=== PATIENT | male | born 1965 | race African-American/Black ===

== ENCOUNTER 2024-09-06 11:29 | Emergency (ER) | payer MEDICARE, MEDICAID, SELFPAY ==
--- NOTE | ~2024-09-06 | CT_ITS ---
EXAMINATION: CT ABDOMEN AND PELVIS WITHOUT CONTRAST CLINICAL INFORMATION: Lower abdominal pain. COMPARISON: None available. TECHNIQUE: Multidetector volumetric imaging was performed from the superior aspect of the liver through the pubic symphysis. Sagittal and coronal reformatted images were obtained on the technologist's workstation. This CT examination was performed using dose optimization techniques as appropriate, variously including the following: *Automated exposure control *Adjustment of mA and/or kV according to patient size (this includes techniques or standardized protocols for targeted exams where dose is matched to indication/reason for exam; i.e. extremities or head) *Use of iterative reconstruction technique DLP: 416 mGy-cm FINDINGS: LUNG BASES: The visualized lung bases are unremarkable. LIVER, GALLBLADDER, AND BILIARY TREE: The liver is normal in size, shape, and attenuation. No focal hepatic lesion or biliary ductal dilatation is present. The gallbladder is unremarkable with no evidence of radiopaque gallstones, gallbladder wall thickening, or obvious pericholecystic inflammatory changes. PANCREAS: Unremarkable. SPLEEN: Unremarkable. ADRENAL GLANDS: Unremarkable. KIDNEYS AND URETERS: The kidneys are normal in size, shape, and attenuation. No hydronephrosis, hydroureter, or calculi seen. No perinephric stranding. BLADDER: Unremarkable. GASTROINTESTINAL TRACT: There are numerous diverticula of the sigmoid colon. There is no diverticulitis. There is no bowel wall thickening /edema. There is no bowel obstruction. There is a moderate volume of stool in the colon. The appendix is nonvisualized . The small bowel loops are unremarkable. The stomach is normal. There is no hiatal hernia. ABDOMINAL WALL: Small bilateral fat-containing inguinal hernia. LYMPH NODES: Normal. VASCULAR: Fusiform aneurysm of the distal aorta. Measures 3.3 cm transverse at the bifurcation. Based on published guidelines in J Am Ngoc Radiol 2013; 10(10):789-794 and J Vasc Surg. 2018; 67:2-77, the recommendation for an abdominal aortic aneurysm with diameter 3.0-3.4 cm is follow-up every 3 years. PELVIC VISCERA: Coarse calcifications within the prostate. Prostate measures 3.4 cm transverse. OSSEOUS STRUCTURES: Unremarkable. CT/CT abdomen pelvis wo IV con IMPRESSION: 1. No acute abnormality CT scan abdomen pelvis. 2. Diverticulosis of colon. No acute change of the bowel. 3. Fusiform aneurysm of the distal aorta. Follow-up every 3 years recommended. Fleischner guidelines were followed. Electronically signed by: Cm Connors MD 09/06/2024 06:34 PM [facility] GONZALEZ
[2024-09-06 11:48] VITALS: BP 226/82; PULSE 62; RESP 16; TEMP 36.8; O2SAT 98; BMI 22.3
--- NOTE | 2024-09-06 11:49 | ED.GENADULT ---
HPI - General Adult General Chief complaint: Abdominal Pain Stated complaint: Hernia Lightheaded Dizzy Related Data Allergies Allergy/AdvReac Type Severity Reaction Status Date / Time aspirin [ASA] Allergy Unknown ANAPHYLAXIS Verified 09/06/24 11:52 strawberry [STRAWBERRY] Allergy Unknown HIVES Verified 09/06/24 11:52 Physical Exam ED Vital Signs: Vital Signs - 24 hr 09/06/24 11:48 Temperature 98.3 F Pulse Rate 62 Respiratory Rate 16 Blood Pressure 226/82 H Pulse Oximetry 98 Oxygen Delivery Method Room Air BMI result Body Mass Index 22.3 Course Course Course Narrative: RME, this is a rapid medical exam performed by Hugo Monroy please refer to primary provider for complete H&P- 59 year old male with history of COPD, HTN, presents for evaluation of right lower abdominal pain for the last 30 days. He went to urgent care this morning and was diagnosed with an inguinal hernia. He was sent here for further evaluation. The patient has not previously been diagnosed with a hernia. His pain is 10/10, denies any other complaints or concerns. The patient is quite hypertensive in triage to 226/82. He does not have any chest pain. Plan for labs, will defer any potential imaging to primary ER provider Discharge Plan Discharge Print Language: Czech
[2024-09-06 12:03] LABS: MANUAL DIFF FLAG NO
[2024-09-06 12:05] LABS: Basophils Absolute Auto 0.1 X10*3/uL (0.0-0.2); Basophils Percent Auto 0.7 % (0-2); Eosinophils Absolute Auto 0.1 X10*3/uL (0.0-0.4); Eosinophils Percent Auto 0.8 % (0-4); Hematocrit 41.1 % (42.0-52.0); Hemoglobin 13.6 g/dl (14.0-18.0); Imm Gran Abs Auto 0.06 X10*3/uL (0.00-0.03); Imm Gran Pct Auto 0.4 % (0.0-0.4); Lymphocytes Absolute Auto 3.7 X10*3/uL (1.2-4.9); Lymphocytes Percent Auto 27.5 % (20-40); Mean Corpuscular HGB Conc 33.1 g/dl (31.0-36.0); Mean Corpuscular Hemoglobin 29.1 pg (27.0-33.0); Mean Platelet Volume 9.9 fL (9.4-12.4); Monocytes Absolute Auto 0.9 X10*3/uL (0.1-1.2); Monocytes Percent Auto 6.9 % (2-11); Neutrophils Absolute Auto 8.5 x10*3/uL (2.0-8.3); Neutrophils Percent Auto 63.7 % (45-73); Platelet Count 285 X10*3/uL (160-400); Red Blood Count 4.67 X10*6/uL (4.60-5.80); Red Cell Distribution Width 15.9 % (11.0-16.0); White Blood Count 13.4 X10*3/uL (4.8-10.8)
[2024-09-06 12:07] LABS: Appearance Urine Clear; Color Urine Yellow; Glucose Urine UA Negative (Negative); Leukocyte Esterase Urine Negative (Negative); Nitrite Urine Negative (Negative); Specific Gravity - Urine <= 1.005 (1.005-1.025); Urine Blood Negative (Negative); Urine Ketones Negative (Negative); Urine Protein Negative (Neg-Trace)
[2024-09-06 12:09] LABS: Bacteria Urine None Seen (None Seen); Hyaline Casts Urine 0-2 /LPF (0-2); RBC Urine 0-2 /HPF (0-2); Squamous Epithelial Cell Urine 0-2 /HPF (0-2); WBC Urine 0-5 /HPF (0-5)
[2024-09-06 12:10] LABS: INTERNATIONAL NORM RATIO 1.1 (0.9-1.1); Prothrombin Time 12.4 SEC (10.9-12.4)
[2024-09-06 12:18] LABS: Lactic Acid 1.3 mmol/L (0.5-2.0)
[2024-09-06 12:19] LABS: Alanine Aminotransferase 22 U/L (0-40); Albumin Level 4.4 g/dL (3.5-5.0); Alkaline Phosphatase 124 U/L (39-117); Anion Gap 9 (12-20); Aspartate Amino Transferase 24 U/L (5-37); Bilirubin Total 0.6 mg/dL (0.0-1.0); Blood Urea Nitrogen 9 mg/dL (9-16); Calcium 8.5 mg/dL (8.4-10.2); Carbon Dioxide 27 mmol/L (22-29); Chloride 106 mmol/L (96-108); Creatinine Clr Calc Pharmacy 102.7; Estimated Glomerular Filt Rate > 60; Glucose Random 106 mg/dL (60-115); Lipase 37 U/L (8-78); Potassium 3.5 mmol/L (3.3-5.1); Sodium 138 mmol/L (135-145); Total Protein 8.5 g/dL (6.5-8.0)
[2024-09-06 13:42] VITALS: BP 187/78; PULSE 59; RESP 18; O2SAT 98
--- NOTE | 2024-09-06 14:16 | ED_ITS ---
HPI - Abdominal Pain General Chief Complaint: Abdominal Pain Stated Complaint: Hernia Lightheaded Dizzy Time Seen by Provider: 09/06/24 14:09 Source: patient Mode of arrival: ambulatory Limitations: no limitations History of Present Illness HPI narrative: This is 59 years old male referred to us from the urgent care because of abdominal pain pain is localized to his in the right lower quadrant a left,Urgent care was concerned abou strangulation elicited complaint: abdominal pain Pertinent past history: none Onset (ago): month(s) Pain Consistency: constant Location: other (bilateral inguinal) Quality: cramping Radiation: RUQ and LLQ Migration to: no migration Exacerbating factors: nothing Relieving factors: nothing Related Data Allergies Allergy/AdvReac Type Severity Reaction Status Date / Time aspirin [ASA] Allergy Unknown ANAPHYLAXIS Verified 09/06/24 11:52 strawberry [STRAWBERRY] Allergy Unknown HIVES Verified 09/06/24 11:52 Review of Systems Eyes: Reports no additional eye complaints Reports system reviewed and no additional complaints, except as documented Cardiovascular: Reports no additional cardiovascular complaints Respiratory: Reports as per HPI PMFSH Past Medical History [facility] Narrative: Patient denies any major medical problems Social History Social History Advance Directives: No Advance Directives Information Provided: Yes Physical Exam ED Vital Signs: Vital Signs - 24 hr 09/06/24 11:48 09/06/24 13:42 09/06/24 15:27 Temperature 98.3 F 98.5 F Pulse Rate 62 59 67 Respiratory Rate 16 18 18 Blood Pressure 226/82 H 187/78 H 187/79 H Pulse Oximetry 98 98 100 Oxygen Delivery Method Room Air Room Air Room Air BMI result Body Mass Index 22.3 Const General: cooperative Nutritional Appearance: well nourished Orientation/consciousness: patient oriented x3 Limitations: no limitations HENMT Head: Yes normal to inspection General nose exam: Normal external nose present Face and sinus: Yes normal facial exam Mouth: Normal oral and palatal mucosa present Throat: Yes posterior oropharynx normal Neck Neck: Yes normal visual inspection Chest Chest palpation & inspection: normal inspection of the chest Resp Effort & Inspection: normal respiratory effort Cardio Jugular venous distension: no JVD Rate: regular rate GI Other: Bilateral tenderness in the right and left lower quadrant Inspection: Yes normal to inspection Palpation (GI): Soft to palpation, not firm and nontender Skin General skin exam: no rashes or lesions noted, elasticity normal and turgor normal Lesions: no lesions Rashes: no rashes Trauma: no lacerations or abrasions Wounds: no wounds Neuro General: patient oriented x3 Course Reevaluation(s) Reevaluation #1: Patient leaves against medical advice he understands risk including sudden , I am not ready to discharge him yet his CT scan result is pending AMA Before ct resulted Time: 15:14 Medical Decision Making Medical Decision Making [facility] Narrative: Patient presented with a bilateral lower abdominal pain concern for hernia we will obtain labs imaging Differential Diagnosis Differential Diagnoses: The differential diagnosis associated with the presentation includes Bilateral inguinal hernia/appendicitis/diverticulitis Admission/Observation Consideration of admission/observation: Escalation of care including admission/observation considered Lab Data [facility] Lab Attestation statement: I reviewed the patient's lab results. 09/06/24 11:58 1218 11:58 Labs: Lab Results 09/06/24 Range/Units 11:58 WBC 13.4 H (4.8-10.8) X10*3/uL RBC 4.67 (4.60-5.80) X10*6/uL Hgb 13.6 L (14.0-18.0) g/dl Hct 41.1 L (42.0-52.0) % MCV 88.0 (80.0-98.0) fL MCH 29.1 (27.0-33.0) pg MCHC 33.1 (31.0-36.0) g/dl RDW 15.9 (11.0-16.0) % Plt Count 285 (160-400) X10*3/uL MPV 9.9 (9.4-12.4) fL Immature Gran % (Auto) 0.4 (0.0-0.4) % Neut % (Auto) 63.7 (45-73) % Lymph % (Auto) 27.5 (20-40) % [place] % (Auto) 6.9 (2-11) % Eos % (Auto) 0.8 (0-4) % Baso % (Auto) 0.7 (0-2) % Lymph # (Auto) 3.7 (1.2-4.9) X10*3/uL [place] # (Auto) 0.9 (0.1-1.2) X10*3/uL Eos # (Auto) 0.1 (0.0-0.4) X10*3/uL Baso # (Auto) 0.1 (0.0-0.2) X10*3/uL Abs Immat Gran (auto) 0.06 H (0.00-0.03) X10*3/uL Absolute Neuts (auto) 8.5 H (2.0-8.3) x10*3/uL Absolute Nucleated RBC 0.000 (0.0-0.012) X10*3/uL Nucleated RBC % (auto) 0.0 (0.0-0.2) /100WBC PT 12.4 (10.9-12.4) SEC INR 1.1 (0.9-1.1) Sodium 138 (135-145) mmol/L Potassium 3.5 (3.3-5.1) mmol/L Chloride 106 (96-108) mmol/L Carbon Dioxide 27 (22-29) mmol/L Anion Gap 9 L (12-20) BUN 9 (9-16) mg/dL Creatinine 0.74 (0.5-1.4) mg/dL Estim Creat Clear Calc 102.7 Estimated GFR > 60 Random Glucose 106 (60-115) mg/dL Lactic Acid 1.3 (0.5-2.0) mmol/L Calcium 8.5 (8.4-10.2) mg/dL Total Bilirubin 0.6 (0.0-1.0) mg/dL AST 24 (5-37) U/L ALT 22 (0-40) U/L Alkaline Phosphatase 124 H (39-117) U/L Total Protein 8.5 H (6.5-8.0) g/dL Albumin 4.4 (3.5-5.0) g/dL Lipase 37 (8-78) U/L Urine Color Yellow Urine Appearance Clear Urine pH 6.0 (5.0-9.0) Ur Specific [place] <= 1.005 (1.005-1.025) Urine Protein Negative (Neg-Trace) mg/dL Urine Glucose (UA) Negative (Negative) mg/dL Urine Ketones Negative (Negative) mg/dL Urine Blood Negative (Negative) Urine Nitrite Negative (Negative) Ur Leukocyte Esterase Negative (Negative) Urine RBC 0-2 (0-2) /HPF Urine WBC 0-5 (0-5) /HPF Ur Squamous Epith Cells 0-2 (0-2) /HPF Urine Bacteria None Seen (None Seen) Hyaline Casts 0-2 (0-2) /LPF Independent Historian Clinical information obtained from an independent historian. History obtained from or confirmed by: Spouse significative other Medications Administered Discontinued Medications Generic Name Dose Route Start Last Admin Trade Name Josias PRN Reason Stop Dose Admin Oxycodone HCl 5 mg 09/06/24 14:40 09/06/24 14:51 Oxycodone Hcl Immed Release 5 Mg Tablet PO 09/06/24 14:41 5 mg ONCE ONE Administration Discharge Plan Discharge Clinical Impression: Abdominal pain Qualifiers: Abdominal location: lower abdomen, unspecified Qualified Code(s): R10.30 - Lower abdominal pain, unspecified Patient Disposition: Left Against Medical Advice Instructions: Abdominal Pain (ED) Additional Instructions: You are leaving against medical advice, you understand risk, your CAT scan is not resulted yet, even a few leaving against medical advise you welcome to come back any time, we will give you the number of the surgeon Dr. Good for follow-up Referrals: Figueroa Good MD [Physician] - 2 days Stand Alone Forms: Against Medical Advice Interventions: ED Discharge Assessment Last Done: 09/06/24 15:27 Discharge Date/Time: 09/06/24 15:28 Print Language: Albanian
[2024-09-06] MEDS: oxyCODONE HCl Immed Release 5 MG TABLET PO (14:51)
[2024-09-06 15:27] VITALS: BP 187/79; PULSE 67; RESP 18; TEMP 36.9; O2SAT 100
== END 2024-09-06 15:28 | disposition left against medical advice (07) ==
PROVIDERS: Physician Assistant; Emergency Provider Emergency Medicine; PCP Internal Medicine
DX: R10.2 Pelvic and perineal pain (principal); R42 Dizziness and giddiness; R10.30 Lower abdominal pain, unspecified; R10.32 Left lower quadrant pain; Z79.899 Other long term (current) drug therapy
CPT/HCPCS: 36415; 74176; 80053; 81001; 83605; 83690; 85025; 85610; 99284

== ENCOUNTER 2024-09-28 08:36 | Outpatient (AMB) | payer MEDICAID, SELFPAY ==
--- NOTE | 2024-09-28 08:37 | A.OFFVIS_ITS ---
Vital Signs 09/28/24 08:44 Height 5 ft 9 in Weight 164 lb 2 oz BMI 24.2 Intake Visit Reasons: 09/06/24 visit, ? Hernia Intake Note: This patient presents for [facility] emergency department follow-up for question of a hernia. Pt c/o; reports pain, right groin. 09/06/2024: Abd/pelvis CT Crop Setting Out Machine Operator Required: No Accompanied by: Family/Other Allergies aspirin [ASA] Allergy (Unknown, Verified 09/28/24 08:45) ANAPHYLAXIS strawberry [STRAWBERRY] Allergy (Unknown, Verified 09/28/24 08:45) HIVES Medication List - Last Reconciled 09/28/24 by Figueroa Good MD albuterol sulfate 90 mcg/actuation 2 puffs inhalation Q4H PRN buspirone 10 mg PO DAILY cyclobenzaprine 5 mg PO TID PRN ibuprofen 600 mg PO Q6H PRN lisinopril 30 mg PO DAILY pantoprazole 40 mg PO DAILY umeclidinium-vilanterol 62.5-25 mcg/actuation (Anoro Ellipta) 1 ea inhalation DAILY HPI HPI 09/06/24 visit, ? Hernia: Details: 59-year-old male referred for fat containing inguinal hernia. He went to the ER last September 06, 2024 for what he describes his pain on the right groin area. He was not aware at that time that he had a right inguinal hernia. He does that he would notice some swelling on the area periodically. His CAT scan showed bilateral inguinal hernias, right more than the left. He says that he does not have any pain or tenderness on the left groin He denies GI complaints He says he has COPD and anxiety. [facility] Medical History (Updated 09/28/24 @ 09:07 by Figueroa Good MD) Reducible right inguinal hernia Hypertension Anxiety COPD (chronic obstructive pulmonary disease) Surgical History No pertinent past surgical history Family History Other Family history unknown Social History Alcohol intake: unknown Patient Tobacco Use Status: Tobacco use Unknown Review of Systems Const Denies chills and Denies fever(s) Card Denies chest pain, Denies dyspnea and Denies dyspnea on exertion Resp Reports cough (Chronic), Denies dyspnea and Denies dyspnea on exertion GI Denies hematochezia and Denies change in bowel habits Denies hematuria and Denies difficulty urinating Musc Denies back pain and Denies limited range of motion Neuro Denies focal weakness and Denies convulsions Psych Reports anxiety, Denies depression and Denies mood swings Physical Exam Vital Signs: BMI result Body Mass Index 24.2 Const General: comfortable and no acute distress Orientation/consciousness: patient oriented x3 Neck Neck: Yes no lymphadenopathy Resp Auscultation: clear to auscultation bilaterally Cardio Rhythm: regular rhythm GI Other: Right groin hernia, palpable with Valsalva, unable to feel an obvious hernia in the left groin Palpation (GI): Soft to palpation, nontender and no guarding Neuro General: patient oriented x3 Assessment & Plan Assessment & Plan (1) Reducible right inguinal hernia: Code(s): K40.90 - Unilateral inguinal hernia, without obstruction or gangrene, not specified as recurrent Category: Medical Plan: He has a fat containing right inguinal hernia which seems to be reducible at this time. I have reviewed his CAT scan. He also has a smaller hernia on the left groin. I explained the technique of inguinal hernia repair with mesh. I reviewed the risks including but not limited to bleeding, infections, injury to other organs including bowel, vas deferens, as testicle, recurrence, postop pain, as well as the benefits and alternatives. I explained to him what to expect postoperatively including restrictions He says he wants to proceed with repair of the right inguinal hernia. He says that he does not want repair of left inguinal hernia at this time. His was with him during the visit. Coding Level of Care Code New Pt Level 3 (89463) Diagnoses Reducible right inguinal hernia K40.90
[2024-09-28 08:44] VITALS: BMI 24.2
== END 2024-09-28 08:57 | disposition home or self-care (01) ==
PROVIDERS: PCP Internal Medicine; Visit Provider Surgery
DX: K40.90 Unilateral inguinal hernia, without obstruction or gangrene, not specified as recurrent (principal)
CPT/HCPCS: 99203

== ENCOUNTER → 2024-09-28 08:36 | Outpatient (BNVA) | payer MEDICAID, SELFPAY | PROVIDERS: PCP Internal Medicine; Visit Provider Surgery | DX: K40.90 Unilateral inguinal hernia, without obstruction or gangrene, not specified as recurrent (principal) | CPT/HCPCS: 99202 ==

== ENCOUNTER 2024-10-27 09:24 | Day surgery (SDC) | payer MEDICARE, MEDICAID, SELFPAY ==
[2024-10-25 13:04] VITALS: BMI 24.2
[2024-10-27] VITALS (7 sets, daily range): BP systolic 140–186; BP diastolic 66–93; PULSE 62–80; RESP 16; TEMP 36.3–36.4; O2SAT 95–98; BMI 25.1
[2024-10-27] MEDS: Lactated Ringers 1,000 ML 100 ML IVCONT (09:50)
--- NOTE | 2024-10-27 09:54 | MHC.SHP ---
Pre-Procedural Eval Section A - 24 Hr Update-Section A only Date of Service: 10/27/24 The patient is an INPATIENT: No Changes since office visit: No Cold of Flu in the past 2 weeks, No New Medical Problems, No Changes in Medication and No Patient answered all questions The patient has been examined within 24 hours of the surgical procedure. The History & Physical has been completed within 30 days and I have reviewed it.: Yes Section B - Complete if H&P > 30 days Chief Complaint: Unilateral inguinal hernia, without obstruction or Allergies: Allergies Allergy/AdvReac Type Severity Reaction Status Date / Time aspirin [ASA] Allergy Unknown ANAPHYLAXIS Verified 09/28/24 08:45 strawberry [STRAWBERRY] Allergy Unknown HIVES Verified 09/28/24 08:45 Plan I have reviewed the history and physical and performed a pertinent physical examination on my patient. No changes have occurred unless specified. Time Spent With Patient Time: Total time managing care of this patient today ____ minutes.
--- OUTSIDE RECORDS SUMMARY | 2024-10-27 09:55 | XMS_ITS | Encounter Summary ---
Author Organization [facility] Address [address] [place] [address] Care Team Providers Care Big Data Software Engineer Name Role Phone You Valle MD Primary Care Provider Encounter Details Date Type Department Care Team (Late Contact Info) Description 09/07/2024 Telephone Adult Medicine [facility] [place] [address] [place] [phone] You Valle MD [address] [place], [place] [id number] Social History Tobacco Use Types Packs/Day Years Used Date Smoking Tobacco: Former Smokeless Tobacco: Former Alcohol Use Standard Drinks/Week Comments No 0 (1 standard drink = 0.6 oz pur e alcohol) Sex and Gender Information Value Date Recorded Sex Assigned at Not on file Gender Identity Not on file Sexual Orientation Not on file Job Start Date Occupation Industry Not on file Not on file Not on file documented as of this encounter Plan of Treatment Upcoming Encounters Date Type Department Care Team (Late Contact Info) Description 11/15/2024 2:00 PM EST Office Visit Pulmonolgy - [place] [address] [facility] [address] [place] [phone] rGeg Flores MD [address] [facility] [address] [place] [address] 12/01/2024 1:30 PM EDT Consult Vascular Surgery - [place] [address] [facility] [address] [place] [phone] Billy Mauricio MD [address] [address] documented as of this encounter Visit Diagnoses Not on filedocumented in this encounter Care Teams Big Data Software Engineer Relationship Specialty Start Date End Date You Valle MD [address] [place] [address] PCP - General Internal Medicine 04/07/19 documented as of this encounter
--- OUTSIDE RECORDS SUMMARY | 2024-10-27 09:55 | XMS_ITS | Encounter Summary ---
Author Organization [facility] Address [address] [place] [address] Care Team Providers Care Second Baller Name Role Phone You Valle MD Primary Care Provider [phone] Reason for Visit * Reason Onset Date Comments Groin Pain 09/05/2024 Encounter Details Date Type Department Care Team ([facility] st Contact Info) Description 09/05/2024 Telephone Adult Medicine [facility] [place] [address] [place] [address] You Valle MD [address] [place] [address] Groin Pain Social History Tobacco Use Types Packs/Day Years [...] on file documented as of this encounter Progress Notes * Deidre Ham RN - 09/07/2024 11:16 AM EST Pt was seen yesterday at and sent to the ed , he was seen and left against medical advice , CT was not read but he signed out , he states he was told to f/u with PCP today. No appointments available until 09/18 pt continues to have pain Will try to locate ct scan and f/u instructions but the document from the er clearly states left AMA, advised pt I cannot book him urgently and until I have more information I cannot book next week Without th ct recommendations He ended the call * Deidre Ham RN - 09/07/2024 11:12 AM EST Pt left without being seen and was advised to stay in the er * Louisa Zamora - 09/07/2024 10:24 AM EST Patient is calling. * Deidre Ham RN - 09/05/2024 4:18 PM EST Call to pt. Left message for pt to call triage * Louisa Zamora - 09/05/2024 1:27 PM EST Call back number changed [phone] * Louisa Zamora - 09/05/2024 1:25 PM EST Patient call requires triage: Symptoms patient is presenting: pain in groin area How long has patient had these symptoms?: a month For ALL patients calling to schedule any appointment (routine, sick visit, follow up, consult, etc.) in the outpatient setting please ask the following questions: Do you have fever of higher than 101, sore throat with difficulty swallowing or severe shortness ofbreath? no If YES to any of these above symptoms, send a message to triage and do not book. Red dot. If no, an audio or video visit should be booked. Have you had close contact with someone with Coronavirus in the last 14 days? no Have you traveled abroad? no Have you traveled recently to another state outside of [place], [place], [place], [place], [place], [place], [place]? no o If yes, did you quarantine for 14 days or have a negative covid test? no If yes to any of the above, patient is not to be scheduled in office until after 14 day quarantine or negative covid test. If pain or injury related was it due to an accident at work or from a motor vehicle accident? If yes, date of accident/Injury: No If yes, gather 3rd alliance party insurance information Third Libertarian Information: not applicable PCP: You Valle MD Payor: MEDICARE / Plan: MEDICARE PART A & B / Product Type: Medicare / documented in this encounter Plan of Treatment Upcoming Encounters Date Type Department Care Team (Late st Contact Info) Description 11/15/2024 2:00 PM EST Office Visit Pulmonolgy - [place] [address] [place] [address] Greg Flores MD [address] [facility] [address] [place] [address] 12/01/2024 1:30 PM EDT Consult Vascular Surgery - [place] [address] [place] [address] Billy Mauricio MD [address] [place] [address] documented as of this encounter Visit Diagnoses Not on filedocumented in this encounter Care Teams Second Baller Relationship Specialty Start Date End Date You Valle MD [address] [place] [id number] PCP - General Internal Medicine 04/07/19 documented as of this encounter
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
--- NOTE | 2024-10-27 10:30 | HO.ANESPROP2 ---
Documented by User: Morena Funez NP 10/25/24 14:40 HPI - Anesthesia Eval Consult details Narrative: 59yo M for Right Hernia Inguinal Reducible with mesh PMFSH Active Problems Active Problems: All Active Problems Reducible right inguinal hernia (Acute) Hypertension (Acute) Anxiety (Acute) COPD (chronic obstructive pulmonary disease) (Acute) Past Medical History Medical History (Updated 09/28/24 @ 09:07 by Figueroa Good MD) Reducible right inguinal hernia Hypertension Anxiety COPD (chronic obstructive pulmonary disease) Family History Family History Other Family history unknown Surgical History Surgical History No pertinent past surgical history Social History Social History Alcohol intake: unknown Patient Tobacco Use Status: Current everyday Tobacco user Have you been hit, kicked, punched, or otherwise hurt by someone within the past year? If so, by whom?: No Are you DNR?: No Advance Directives: No Advance Directives Information Provided: Yes Meds Allergies Allergy/AdvReac Type Severity Reaction Status Date / Time aspirin [ASA] Allergy Unknown ANAPHYLAXIS Verified 09/28/24 08:45 strawberry [STRAWBERRY] Allergy Unknown HIVES Verified 09/28/24 08:45 Home Medications ?Medication ?Instructions ?Recorded ?Confirmed ?Last Taken ?Type albuterol sulfate 90 mcg/actuation 2 puff inhalation Q4H PRN wheezing 09/28/24 09/28/24 Unknown History aerosol inhaler buspirone 10 mg tablet 10 mg PO DAILY 09/28/24 09/28/24 Unknown History cyclobenzaprine 5 mg tablet 5 mg PO TID PRN 09/28/24 09/28/24 Unknown History ibuprofen 600 mg tablet 600 mg PO Q6H PRN Pain (Scale 09/28/24 09/28/24 10/20/24 History Score 4-6) lisinopril 30 mg tablet 30 mg PO DAILY 09/28/24 09/28/24 10/27/24 History pantoprazole 40 mg tablet,delayed 40 mg PO DAILY 09/28/24 09/28/24 10/27/24 History release umeclidinium 62.5 mcg-vilanterol 1 ea inhalation DAILY 09/28/24 09/28/24 Unknown History 25 mcg/actuation powdr for inhalation (Anoro Ellipta) Exam Height,Weight and Vital Signs: Height 5 ft 9 in Weight 74.389 kg Pertinent Lab Results Pertinent Lab Results: Laboratory Tests 09/06/24 11:58 WBC 13.4 H Hgb 13.6 L Hct 41.1 L Plt Count 285 Sodium 138 Potassium 3.5 Chloride 106 Carbon Dioxide 27 BUN 9 Creatinine 0.74 Assessment and Plan Assessment Anesthesia Assessment: Chart Reviewed Documented by User: Nadia Quiles DO 10/27/24 10:52 PMFSH Past Medical History Medical History (Updated 09/28/24 @ 09:07 by Figueroa Good MD) Reducible right inguinal hernia Hypertension Anxiety COPD (chronic obstructive pulmonary disease) Family History Family History Other Family history unknown Family history of problems with anesthesia: No Surgical History Surgical History No pertinent past surgical history History of Problems with Anesthesia: No Social History Social History Alcohol intake: unknown Patient Tobacco Use Status: Current everyday Tobacco user Have you been hit, kicked, punched, or otherwise hurt by someone within the past year? If so, by whom?: No Are you DNR?: No Advance Directives: No Advance Directives Information Provided: Yes Meds Allergies Allergy/AdvReac Type Severity Reaction Status Date / Time aspirin [ASA] Allergy Unknown ANAPHYLAXIS Verified 09/28/24 08:45 strawberry [STRAWBERRY] Allergy Unknown HIVES Verified 09/28/24 08:45 Home Medications ?Medication ?Instructions ?Recorded ?Confirmed ?Last Taken ?Type albuterol sulfate 90 mcg/actuation 2 puff inhalation Q4H PRN wheezing 09/28/24 09/28/24 Unknown History aerosol inhaler buspirone 10 mg tablet 10 mg PO DAILY 09/28/24 09/28/24 Unknown History cyclobenzaprine 5 mg tablet 5 mg PO TID PRN 09/28/24 09/28/24 Unknown History ibuprofen 600 mg tablet 600 mg PO Q6H PRN Pain (Scale 09/28/24 09/28/24 10/20/24 History Score 4-6) lisinopril 30 mg tablet 30 mg PO DAILY 09/28/24 09/28/24 10/27/24 History pantoprazole 40 mg tablet,delayed 40 mg PO DAILY 09/28/24 09/28/24 10/27/24 History release umeclidinium 62.5 mcg-vilanterol 1 ea inhalation DAILY 09/28/24 09/28/24 Unknown History 25 mcg/actuation powdr for inhalation (Anoro Ellipta) Exam Exam Date and Time: 10/27/24 1025 Height,Weight and Vital Signs: Height 5 ft 9 in Weight 74.389 kg Vital Signs Temperature 97.4 F 10/27/24 09:30 Pulse Rate 80 10/27/24 09:30 Respiratory Rate 16 10/27/24 09:30 Blood Pressure 186/93 H 10/27/24 09:30 Pulse Oximetry 95 10/27/24 09:30 Oxygen Delivery Method Room Air 10/27/24 09:30 Temperature 97.4 F 10/27/24 09:30 Pulse Rate 80 10/27/24 09:30 Respiratory Rate 16 10/27/24 09:30 Blood Pressure 186/93 H 10/27/24 09:30 Pulse Oximetry 95 10/27/24 09:30 Oxygen Delivery Method Room Air 10/27/24 09:30 Airway Mallampati Class: II TM Dist: >3cm Neck ROM: Full Denture: Upper and Lower Heart: S1S2 Lungs: CTAB Assessment and Plan Assessment Anesthesia Assessment: Anesthesia Plan Discussed and Chart Reviewed Final Anesthetic Review Family History of Problems with Anesthesia: No History of Problems with Anesthesia: No NPO: Yes ASA Class: II Final Preanesthetic Review: No Changes in Pt Med Stat, Meds/Allgs Chart Reviewed, Consent Obtained/Reviewed and Anes Risks/Benef Reviewed Patient Risk: Low Procedure Risk: Low Anesthetic Plan Anesthetic Plan: GA and Agree w/ Assess. and Plan Disposition: Standard PACU
--- NOTE | 2024-10-27 11:44 | P.OP_ITS ---
Operative Note Operative Note Date of Service: 10/27/24 Narrative: Preop diagnosis: Right inguinal hernia, reducible Postop diagnosis: Right inguinal hernia, reducible, indirect Procedure: Repair of right inguinal hernia with mesh Surgeon: Figueroa Good MD [employer] Instructor: HIMA Ventura The patient is a 59-year-old male with a reducible mass in the right groin consistent with a right inguinal hernia. In view of symptoms, he wanted to proceed with repair. He understood the technique of repair with mesh. He was aware of the risks, benefits, and alternatives. He was brought to the operating room. He was placed supine under general anesthesia via laryngeal mask airway. The right groin was prepped and draped in the usual sterile fashion. A surgical time-out was done. The patient received cefazolin 2 g IV preoperatively I infiltrated the planned line of incision with lidocaine 1%. I made a short incision on the skin along an imaginary line from the anterior superior iliac spine to the pubic ramus with a blade 15. This carried down with electrocautery through the full-thickness of the skin and subcutaneous fat down to the external oblique aponeurosis. I bluntly dissected the aponeurosis to find the external ring. I then made an incision on the external oblique aponeurosis with a blade 15. This was extended inferomedially to connect with the external ring. Hemostats were applied on the incised edges of the external oblique aponeurosis. I then bluntly dissected the underside of the aponeurosis to create a pocket for the mesh. I proceeded to do blunt dissection of the spermatic cord and its contents with my index finger until was able to pass a Chadron drain around this. This Rachel drain was used for retraction. I identified the vas deferens and the accompanying vessels. He had doing so was able to then identify the hernia sac along with fatty contents. I bluntly dissected the sac off of the rest of the cord contents until I was able to reduce this completely through the internal ring. This was therefore an indirect hernia. I reinforced the internal ring with a small-sized Prolene plug. The plug was secured with Prolene 2 sutures to the shelving edge of the inguinal meant laterally, the internal oblique superiorly and medially using the inner leaves of the plug I then positioned a keyhole mesh on the floor of the canal. The tails of the mesh were passed around the cord at the level of the internal ring and were secured together with Prolene 2 sutures. I flattened the mesh. I secured the mesh with Prolene 2 sutures to the shelving edge of the inguinal meant laterally, the internal oblique superiorly and medially as well as the ramus inferomedially I irrigated and removed the Chadron drain. Once hemostasis was confirmed, I proceeded to then reapposed the divided external oblique aponeurosis with a running Polysorb 2-0 stitch to re-create the external ring The subcutaneous layer was reapposed with Polysorb 3-0 simple interrupted sutures. Skin closure was achieved with Polysorb 4-0 subcuticular running stitch. The incision was infiltrated with Marcaine 0.5% for postop analgesia. Dressings were applied. The procedure was completed The patient tolerated the procedure well. There were no immediate complications. Initial and final counts of sponges and instruments were correct. Estimated blood loss was about 25 cc The patient was extubated without difficulty and transferred to the recovery room with stable vital signs.
[2024-10-27] MEDS: fentaNYL citrate/PF 100 MCG/2 ML VIAL 50 MCG IVPUSH (12:25)
== END 2024-10-27 13:00 | disposition home or self-care (01) ==
PROVIDERS: PCP Internal Medicine; Visit Provider Surgery
PROC: (CPT 49505; principal; 2024-10-27 11:00)
DX: K40.90 Unilateral inguinal hernia, without obstruction or gangrene, not specified as recurrent (principal); I10 Essential (primary) hypertension; J44.9 Chronic obstructive pulmonary disease, unspecified; F41.9 Anxiety disorder, unspecified; Z79.51 Long term (current) use of inhaled steroids; Z79.899 Other long term (current) drug therapy; Z88.6 Allergy status to analgesic agent; Z72.0 Tobacco use
CPT/HCPCS: 49505; C1781; J0131; J0690; J1100; J1885; J2405; J2704; J3010

== ENCOUNTER → 2024-10-27 09:24 | Outpatient (BNV) | payer MEDICARE, MEDICAID, SELFPAY | PROVIDERS: PCP Internal Medicine; Visit Provider Surgery | DX: K40.90 Unilateral inguinal hernia, without obstruction or gangrene, not specified as recurrent (principal) | CPT/HCPCS: 49505 ==

== ENCOUNTER 2024-11-08 11:01 | Outpatient (AMB) | payer MEDICARE, MEDICAID, SELFPAY ==
[2024-11-08 11:03] VITALS: BMI 22.7
--- NOTE | 2024-11-08 11:03 | MHC.OFFVIS ---
Vital Signs 11/08/24 11:03 Height 5 ft 9 in Weight 154 lb BMI 22.7 Intake Visit Reasons: s/p RIH w/mesh Intake Note: This patient presents for post-op assessment status post Repair of right inguinal hernia with mesh . Pt c/o; pain. Director Presales Required: No Accompanied by: Spouse Allergies aspirin [ASA] Allergy (Unknown, Verified 11/08/24 11:08) ANAPHYLAXIS strawberry [STRAWBERRY] Allergy (Unknown, Verified 11/08/24 11:08) HIVES HPI HPI s/p RIH w/mesh: Details: He underwent repair of a right inguinal hernia with mesh last 10/27/2024 and is here for postop visit. He denies any significant complaints except for pain. He says he is doing well overall. [facility] Medical History Reducible right inguinal hernia Hypertension Anxiety COPD (chronic obstructive pulmonary disease) Surgical History History of right inguinal hernia repair (~10/27/24) Family History Other Family history unknown Social History Alcohol intake: unknown Comment: pt medicated with fentanyl Patient Tobacco Use Status: Current everyday Tobacco user Review of Systems Const Denies chills and Denies fever(s) Card Denies chest pain, Denies dyspnea and Denies dyspnea on exertion Resp Denies cough, Denies dyspnea and Denies dyspnea on exertion GI Denies hematochezia and Denies change in bowel habits Denies hematuria and Denies difficulty urinating Musc Denies back pain and Denies limited range of motion Neuro Denies focal weakness and Denies convulsions Psych Denies depression and Denies mood swings Physical Exam Vital Signs: BMI result Body Mass Index 22.7 Const General: comfortable and no acute distress Resp Effort & Inspection: normal respiratory effort Cardio Rate: regular rate GI Other: Right inguinal hernia repair site is well healed, not infected, repair site intact Palpation (GI): Soft to palpation, not firm and nontender Assessment & Plan Assessment & Plan (1) Reducible right inguinal hernia: Code(s): K40.90 - Unilateral inguinal hernia, without obstruction or gangrene, not specified as recurrent Category: Medical Plan: Status post repair with mesh. He is doing very well. The repair site is well healed. The repair is intact. I advised him to avoid lifting more than 20 lb for at least 3 more weeks. He asked for some pain medication so I will prescribe him tramadol I will see him in the office in about a month for another postop visit. Coding Level of Care Code Global (77974) Diagnoses Reducible right inguinal hernia K40.90
--- OUTSIDE RECORDS SUMMARY | 2024-11-08 11:48 | XMS_ITS | Clinical Summary ---
Author Organization 175 [facility] Address 175 [place] [address] Phone Care Team Providers Care Hat Forming Machine Operator Name Role Phone You Valle MD Primary Care Provider [phone] Allergies Active Allergy Reactions Criticality Noted Date Comments Aspirin Wheezing 08/05/2018 [place] Wheezing 08/05/2018 Medications ibuprofen (ADVIL,MOTRIN) 600 mg tablet Take 1 Tablet by mouth every 6 hours as needed for Pain. 4 Active busPIRone (BUSPAR) 10 mg tablet Take 1 Tablet by mouth daily. 4 Active ipratropium-alb uteroL (Combivent Respimat) 20-100 mcg/actuation inhaler Inhale 1 Puff into the lungs 4 times daily as needed for Other. 1 Active pantoprazole (PROTONIX) 40 mg EC tablet TAKE 1 TABLET BY MOUTH DAILY 90 tablet 1 5 Active lisinopriL (PRINIVIL,ZESTR [place]) 30 mg tablet TAKE 1 TABLET BY MOUTH DAILY 90 tablet 1 5 Active lisinopriL (PRINIVIL,ZESTR IL) 30 mg tablet Take 1 Tablet by mouth daily for 180 days. 4 10/30/19 25 Discontinued pantoprazole (PROTONIX) 40 mg EC tablet Take 1 Tablet by mouth daily. 4 10/30/19 25 Discontinued Active Problems Problem Noted Date Diagnosed Date [...] 1:00 PM EST Office Visit Adult Medicine [address] [phone] Heath Moon PA Right inguinal hernia (Primary Dx); Abdominal aortic aneurysm (AAA) without rupture, unspecified part ([facility]/HCC) 09/07/2024 Telephone Adult Medicine [address] [phone] You Valle MD 09/05/2024 Telephone Adult Medicine [address] [phone] You Valle MD Groin Pain from Last [...] Recorded Sex Assigned at Not on file Legal Sex Male 3:35 AM EST Gender Identity Not on file Sexual Orientation Not on file Obstetrics History Last Filed [...] 2:00 PM EST Office Visit Pulmonolgy - [place] 175 [facility] [address] [place] [id number] Greg Flores MD 175 [facility] [address] [place] [address] 12/01/2024 1:30 PM EDT Consult Vascular Surgery - [place] [address] [place] [phone] Billy Mauricio MD [address] [address] Health Maintenance Due Date Last Done Comments Pneumococcal Vaccine: 50+ Years (2 of 2 - PCV) 07/07/2012 07/07/2011 Pneumococcal Vaccine: Pediatrics (0 to 5 Years) [...] 60-74 years 1-dose series) 2024 COVID-19 Vaccine ( - season) 2024 Influenza Vaccine (#1) 2024 , [...] patient's age to complete this topic Hepatitis A Vaccines Aged Out No long er eligible [...] patient's age to complete this topic Meningococcal B Vacine Aged Out No lo nger eligible based on patient's age to complete [...] Results * Annual BMP Blood Test (03/18/2020) Annual BMP Blood Test Abstracted [facility] Provider HEALTH MAINTENANCE Final Result * (ABNORMAL) Lipid panel (03/18/2020) LDL/HDL Ratio 5(A) 0 - 4 Triglycerides 62 0 - 150 mg/dL Cholesterol 149 0 - 200 mg/dL HDL 29(A) >=40 mg/dL LDL Cholesterol 108(A) 0 - 100 mg/dL Blood Venous blood specimen / Unknown [facility] Provider LAB BLOOD ORDERABLES Nya l Result * Hepatitis C Screening (09/08/2018) Pathologist [facility] Hepatitis C Screening Abstracted [facility] Provider HEALTH MAINTENANCE Final Result from Last 3 Months or Most Recently Relevant to Health Maintenance Insurance MEDICARE MEDICAID - [place] Care Teams Hat Forming Machine Operator Relationship Specialty Start Date End Date You Valle MD [address] [place] [address] PCP - General Internal Medicine 04/07/19
== END 2024-11-08 11:18 | disposition home or self-care (01) ==
PROVIDERS: PCP Internal Medicine; Visit Provider Surgery
DX: K40.90 Unilateral inguinal hernia, without obstruction or gangrene, not specified as recurrent (principal)
CPT/HCPCS: 99024

== ENCOUNTER → 2024-11-08 11:01 | Outpatient (BNVA) | payer MEDICAID, SELFPAY | PROVIDERS: PCP Internal Medicine; Visit Provider Surgery | DX: K40.90 Unilateral inguinal hernia, without obstruction or gangrene, not specified as recurrent (principal) | CPT/HCPCS: 99212 ==

== ENCOUNTER 2024-12-06 11:01 | Outpatient (AMB) | payer MEDICARE, MEDICAID, SELFPAY ==
--- NOTE | 2024-12-06 11:09 | MHC.OFFVIS ---
Vital Signs 12/06/24 11:12 Height 5 ft 9 in Weight 156 lb BMI 23.0 Intake Visit Reasons: 1 month s/p RIH w/mesh Intake Note: This patient presents for one month follow-up status post right inguinal hernia repair with mesh. Pt c/o; reports no complaints. Field Cane Scale Clerk Required: No Accompanied by: Spouse Allergies aspirin [ASA] Allergy (Unknown, Verified 12/06/24 11:12) ANAPHYLAXIS strawberry [STRAWBERRY] Allergy (Unknown, Verified 12/06/24 11:12) HIVES HPI HPI 1 month s/p RIH w/mesh: Details: He is here for another postop check after repair of right inguinal hernia last 10/28/2024. He continues to do well. Denies any significant complaints. [facility] Medical History Reducible right inguinal hernia Hypertension Anxiety COPD (chronic obstructive pulmonary disease) Surgical History History of right inguinal hernia repair (~10/27/24) Family History Other Family history unknown Social History Alcohol intake: unknown Comment: pt medicated with fentanyl Patient Tobacco Use Status: Current everyday Tobacco user Review of Systems Const Denies chills and Denies fever(s) Resp Denies cough GI Denies abdominal pain Denies difficulty urinating Physical Exam Vital Signs: BMI result Body Mass Index 23.0 Const General: comfortable and no acute distress GI Other: Right inguinal hernia repair site well healed, repair intact Palpation (GI): Soft to palpation, not firm and nontender Assessment & Plan Assessment & Plan (1) Reducible right inguinal hernia: Code(s): K40.90 - Unilateral inguinal hernia, without obstruction or gangrene, not specified as recurrent Category: Medical Plan: Status post repair of right inguinal hernia with mesh. He continues to do well. The repair site is intact. He can therefore follow up on a p.r.n. basis. Coding Level of Care Code Global (09165) Diagnoses Reducible right inguinal hernia K40.90
[2024-12-06 11:12] VITALS: BMI 23.0
--- OUTSIDE RECORDS SUMMARY | 2024-12-06 13:17 | XMS_ITS | Clinical Summary ---
Author Organization [facility] Address [address] [place] [address] Phone Care Team Providers Care Remote Encoding Operations Supervisor Name Role Phone You Valle MD Primary Care Provider [phone] Allergies Active Allergy Reactions Criticality Noted Date Comments Aspirin Wheezing 08/05/2018 [place] Wheezing 08/05/2018 Medications ibuprofen (ADVIL,MOTRIN) 600 mg tablet Take 1 Tablet by mouth every 6 hours as needed for Pain. 01/03/2024 Active busPIRone (BUSPAR) 10 mg tablet Take 1 Tablet by mouth daily. 01/03/2024 Active ipratropium-albu teroL (Combivent Respimat) 20-100 mcg/actuation inhaler Inhale 1 Puff into the lungs 4 times daily as needed for Other. 03/13/2021 Active pantoprazole (PROTONIX) 40 mg EC tablet TAKE 1 TABLET BY MOUTH DAILY 90 tablet 1 10/30/2024 Active lisinopriL (PRINIVIL,ZESTRI L) 30 mg tablet TAKE 1 TABLET BY MOUTH DAILY 90 tablet 1 10/30/2024 Active Active Problems Problem Noted Date Diagnosed [...] Encounters Date Type Department Care Team Description 12/01/2024 1:30 PM EDT Consult Vascular Surgery [facility] [address] [place] [address] Billy Mauricio MD Infrarenal abdominal aortic aneurysm (AAA) without rupture (CMS/HCC) (Primary Dx); Abdominal aortic aneurysm (AAA) without rupture, unspecified part (CMS/HCC) 11/15/2024 2:00 PM EST Office Visit Pulmonolgy - [place] [address] [facility] [address] [place] [phone] Greg Flores MD Chronic obstructive pulmonary disease, unspecified COPD type (CMS/HCC) (Primary Dx); Tobacco abuse 09/18/2024 1:00 PM EST Office Visit Adult Medicine [facility] [place], [place] [address] [place], [place] [phone] Heath Moon PA Right inguinal hernia (Primary Dx); Abdominal aortic aneurysm (AAA) without rupture, unspecified part (CMS/HCC) 09/07/2024 Telephone Adult Medicine [facility] [place] [place] [address] [place], [place] [phone] You Valle MD from Last 3 Months Immunizations Name Administration [...] Panic attacks 08/05/2018 DX:Panic attacks ; COMMENT: 12/28/16 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 [...] Types Packs/Day Years Used Date Smoking Tobacco: Every Day Cigars Smokeless Tobacco: Former Tobacco Cessation:Ready to Q uit: Not Asked; Counseling Given: Not Answered Comments:Smoking 3 cigars daily Alcohol Use Standard Drinks/Week Comments No 0 (1 standard drink = 0.6 oz pur e alcohol) Sex and Gender Information Value Date Recorded Sex Assigned at Not on file Legal Sex Male 3:35 AM EST Gender Identity Not on file Sexual Orientation Not on file Obstetrics History Last Filed Vital Signs Vital Sign Reading Time Taken Comments Blood Pressure 132/70 12/01/2024 1:46 PM EDT Pulse 72 12/01/2024 1:46 PM EDT Temperature 36.4 ??C (97.6 ??F) 11/15/2024 2:12 PM ES T Respiratory Rate 16 12/01/2024 1:46 PM EDT Oxygen Saturation 99% 11/15/2024 2:12 PM EST Inhaled Oxygen Concentration - - Weight 72.1 kg (159 lb) 12/01/2024 1:46 PM EDT Height 175.3 cm (5' 9 ) 12/01/2024 1:46 PM EDT Body Mass Index 23.48 12/01/2024 1:46 PM EDT Plan of Treatment Upcoming Encounters Date Type Department Care Team (Late st Contact Info) Description 12/26/2024 10:30 AM EDT Clinical Support Lung Screening Program - [place] [address] [facility] [address] [place] [address] 12/26/2024 11:00 AM EDT Appointment [facility] CT Scan [address] [facility] [place] [phone] 06/08/2025 11:30 AM EDT Office Visit Vascular Surgery - [place] [address] [place] [address] Billy Mauricio MD [address] [place] [address] Health Maintenance Due Date Last Done Comments Hepatitis A Vaccines (1 of 2 - Risk 2-dose series) 1984 Pneumococcal Vaccine: 50+ Years (2 of 2 [...] years 1-dose series) 2024 COVID-19 Vaccine ( season) 2024 Influenza Vaccine (#1) 2024 , [...] Test (03/18/2020) Annual BMP Blood Test Abstracted [facility] Provider HEALTH MAINTENANCE Final Result * (ABNORMAL) Lipid panel (03/18/2020) Pathologist [facility] LDL/HDL Ratio 5(A) 0 - 4 Triglycerides 62 0 - 150 mg/dL Cholesterol 149 0 - 200 mg/dL HDL 29(A) >=40 mg/dL LDL Cholesterol 108(A) 0 - 100 mg/dL Blood Venous blood specimen / Unknown [facility] Provider LAB BLOOD ORDERABLES Nya l Result * Hepatitis C Screening (09/08/2018) Pathologist [facility] Hepatitis C Screening Abstracted Historical Provider HEALTH MAINTENANCE Final Result from Last 3 Months or Most Recently Relevant to Health Maintenance Insurance MEDICARE MEDICAID - [place] Care Teams Remote Encoding Operations Supervisor Relationship Specialty Start Date End Date You Valle MD [address] [place] [address] PCP - General Internal Medicine 04/07/19
--- OUTSIDE RECORDS SUMMARY | 2024-12-06 13:17 | XMS_ITS | Encounter Summary ---
Author Organization [facility] Address [address] [place] [address] Care Team Providers Care Credit Officer Name Role Phone You Valle MD Primary Care Provider [phone] Encounter Details Date Type Department Care Team Description 07/31/2021 Fire Operations Forester Report Medical Records [address] [place] [address] [facility] Social History Tobacco Use Types Packs/Day Years Used Date Smoking Tobacco: Every Day Cigarettes 1 47 Last attempted to quit: 11/24/2018 Smokeless Tobacco: Current Alcohol Use Standard Drinks/Week Comments No 0 (1 standard drink = 0.6 oz pur e alcohol) Sex Assigned at Date Recorded Not on file Job Start Date Occupation Industry Not on file Not on file Not on file COVID-19 Exposure Response Date Recorded In the last month, have you been in contact with someone who was confirmed or suspected to have Coronavirus / COVID-19? No / Unsure 07/02/2021 3:56 PM EDT documented as of this encounter Plan of Treatment Not on file documented as of this encounter Visit Diagnoses Not on filedocumented in this encounter Care Teams Credit Officer Relationship Specialty Start Date End Date You Valle MD [address] [place], [place] [phone] PCP - General Internal Medicine 04/07/19 documented as of this encounter
--- OUTSIDE RECORDS SUMMARY | 2024-12-06 13:17 | XMS_ITS | Encounter Summary ---
Author Organization [facility] Address [address] [place] [address] Care Team Providers Care Photo Mask Inspector Name Role Phone You Valle MD Primary Care Provider [phone] Encounter Details Date Type Department Care Team Description 07/28/2021 Distance Learning Technician Report Medical Records [address] [place] [address] Susie Juarez PA-C [address] [place] [phone] Social History Tobacco Use Types Packs/Day Years [...] on filedocumented in this encounter Care Teams Photo Mask Inspector Relationship Specialty Start Date End Date oYu Valle MD [address] [place] [address] PCP - General Internal Medicine 04/07/19 documented as of this encounter
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
--- OUTSIDE RECORDS SUMMARY | 2024-12-06 13:17 | XMS_ITS | Encounter Summary ---
Author Organization [facility] Address [address] [facility] [place] [address] Care Team Providers Care In Tube Conversion Technician Name Role Phone Ping Calderon MD Primary Care Provider Unavail You Krishna MD Primary Care Provider [phone] Reason for Visit * Reason Onset Date Comments Call From Pharmacy 03/02/2019 [facility] Home Encounter Details Date Type Department Care Team Description 03/02/2019 Telephone Pulmonology - [place] [address] [facility] [address] [place] [address] Senthil Daniel MD [address] [facility] [address] [place] [address] Call From Pharmacy ([address]) Social History Tobacco Use Types Packs/Day Years Used Date Smoking Tobacco: Former Cigarettes 1 47 Q uit: 11/24/2018 Smokeless Tobacco: Current Alcohol Use Standard Drinks/Week Comments No 0 (1 standard drink = 0.6 oz pur e alcohol) Sex Assigned at Date Recorded Not on file Job Start Date Occupation Industry Not on file Not on file Not on file documented as of this encounter Miscellaneous Notes * Telephone Encounter - Cherrie Nolan M.A. - 03/03/2019 4:26 PM EDT I have been checking fax, but I still have not received it. * Telephone Encounter - Megan Valera - 03/03/2019 10:58 AM EDT Serena from [facility] calling to inform cherrie that Rx was faxed to number given, re-faxing [phone] * Telephone Encounter - AnaC ristina Avalos M.A. - 03/02/2019 11:19 AM EDT Serena from [facility] called checking on status of Medicare Form faxed over 03/01/19. They need to submit it in order to send out pt's nebulizer supplies. I recommended she refax it just in case. PH: [phone] documented in this encounter Plan of Treatment Not on file documented as of this encounter Visit Diagnoses Not on filedocumented in this encounter Care Teams In Tube Conversion Technician Relationship Specialty Start Date End Date Ping Calderon MD PCP - General Internal Medicine 06/28/18 04/06/19 You Valle MD [address] [place] [address] PCP - General Internal Medicine 04/07/19 documented as of this encounter
--- OUTSIDE RECORDS SUMMARY | 2024-12-06 13:17 | XMS_ITS | Encounter Summary ---
Author Organization [facility] Address [address] [facility] [place] [address] Care Team Providers Care Composition Tile Layer Name Role Phone You Valle MD Primary Care Provider [phone] Encounter Details Date Type Department Care Team Description 05/10/2023 Sprinkler Fitter Apprentice Report Medical Records [address] [place] [address] [facility] Social History Tobacco Use Types Packs/Day Years Used Date Smoking Tobacco: Every Day Cigars Smokeless Tobacco: Former Comments:5 cigars daily Alcohol Use Standard Drinks/Week Comments No 0 (1 standard drink = 0.6 oz pur e alcohol) Sex Assigned at Date Recorded Not on file Job Start Date Occupation Industry Not on file Not on file Not on file COVID-19 Exposure Response Date Recorded In the last 10 days, have yo u been in contact with someone who was confirmed or suspected to have Coronavirus/COVID-19? No / Unsure 05/12/2023 1:58 PM EDT documented as of this encounter Plan of Treatment Not on file documented as of this encounter Visit Diagnoses Not on filedocumented in this encounter Care Teams Composition Tile Layer Relationship Specialty Start Date End Date You Valle MD [address] [place], [place] [phone] PCP - General Internal Medicine 04/07/19 documented as of this encounter
--- OUTSIDE RECORDS SUMMARY | 2024-12-06 13:17 | XMS_ITS | Encounter Summary ---
Author Organization [facility] Address [address] [place] [address] Care Team Providers Care Residential Support Worker Name Role Phone You Valle MD Primary Care Provider [phone] Reason for Referral * Imaging (Routine) - Authorized Specialty Diagnoses / Procedures Referred By Contac t Referred To Contact Diagnoses Abdominal aortic aneurysm (AAA) without rupture, unspecified part (CMS/HCC) Infrarenal abdominal aortic aneurysm (AAA) without rupture (CMS/HCC) Procedures Vascular US duplex aorta/IVC/iliac/grafts complete Billy Mauricio MD [address] [facility] [address] [place] [address] Phone: tel: fax: [facility] Referral ID Status Reason Start Date Expiration Date V isits Requested Visits Authorized [id number] Authorized 12/04/2024 12/04/2025 1 1 Reason for Visit * Reason Comments Abdominal Aortic Aneurysm * Consultation (Routine) - Closed Specialty Diagnoses / Procedures Referred By Contac t Referred To Contact Vascular Surgery Diagnoses Abdominal aortic aneurysm (AAA) without rupture, unspecified part (CMS/HCC) Heath Moon PA [address] [place] [address] Phone: tel: fax: Vascular Surgery [facility] [address] [place] [address] Phone: tel: fax: Referral ID Status Reason Start Date Expiration Date V isits Requested Visits Authorized [id number] Closed Specialty Services Required 09/18/2024 09/18/2025 1 1 Encounter Details Date Type Department Care Team (Late st Contact Info) Description 12/01/2024 1:30 PM EDT Consult Vascular Surgery - [place] [address] [place] [phone] Billy Mauricio MD [address] [place] [address] Infrarenal abdominal aortic aneurysm (AAA) without rupture (CMS/HCC) (Primary Dx); Abdominal aortic aneurysm (AAA) without rupture, unspecified part (CMS/HCC) Social History Tobacco Use Types Packs/Day Years Used Date Smoking Tobacco: Every Day Cigars Smokeless Tobacco: Former Comments:Smoking 3 cigars da los Alcohol Use Standard Drinks/Week Comments No 0 (1 standard drink = 0.6 oz pur e alcohol) Sex and Gender Information Value Date Recorded Sex Assigned at Not on file Legal Sex Male 3:35 AM EST Gender Identity Not on file Sexual Orientation Not on file documented as of this encounter Last Filed Vital Signs Vital Sign Reading Time Taken Comments Blood Pressure 132/70 12/01/2024 1:46 PM EDT Pulse 72 12/01/2024 1:46 PM EDT Temperature - - Respiratory Rate 16 12/01/2024 1:46 PM EDT Oxygen Saturation - - Inhaled Oxygen Concentration - - Weight 72.1 kg (159 lb) 12/01/2024 1:46 PM EDT Height 175.3 cm (5' 9 ) 12/01/2024 1:46 PM EDT Body Mass Index 23.48 12/01/2024 1:46 PM EDT documented in this encounter Plan of Treatment Upcoming Encounters Date Type Department Care Team (Late st Contact Info) Description 12/26/2024 10:30 AM EDT Clinical Support Lung Screening Program - [place] [address] [facility] [address] [place] [phone] 12/26/2024 11:00 AM EDT Appointment [facility] CT Scan [address] [place] [phone] 06/08/2025 11:30 AM EDT Office Visit Vascular Surgery - [place] [address] [place] [address] Billy Mauricio MD [address] [place] [address] Scheduled Orders Name Type Priority Associated Diagnoses Orde r Schedule Vascular US duplex aorta/IVC/iliac/gr afts complete Vascular Ultrasound Routine Abdominal aortic aneurysm (AAA) without rupture, unspecified part (CMS/HCC) Infrarenal abdominal aortic aneurysm (AAA) without rupture (CMS/HCC) Expected: 05/06/2025, Expires: 12/04/2025 documented as of this encounter Visit Diagnoses Diagnosis Infrarenal abdominal aortic aneurysm (AAA) without rupture (CMS/HCC)- Primary Abdominal aortic aneurysm (AAA) without rupture, unspecified part (CMS/HCC) documented in this encounter Orders Outpatient Referral Count Last Ordered Date Fir st Ordered Date AMB REFERRAL TO VASCULAR SURGERY 1 12/02/19 25 documented in this encounter Care Teams Residential Support Worker Relationship Specialty Start Date End Date You Valle MD [address] [place] [address] PCP - General Internal Medicine 04/07/19 documented as of this encounter
--- OUTSIDE RECORDS SUMMARY | 2024-12-06 13:17 | XMS_ITS | Encounter Summary ---
Author Organization [facility] Address [address] [place] [address] Care Team Providers Care Baseball Player Name Role Phone You Valle MD Primary Care Provider [phone] Encounter Details Date Type Department Care Team Description 12/28/2019 Pharmacy Benefit Manager Report Medical Records [address] [place] [address] Delmi Aldana NP Social History Tobacco Use Types Packs/Day Years [...] on filedocumented in this encounter Care Teams Baseball Player Relationship Specialty Start Date End Date You Valle MD [address] [place], [place] [phone] PCP - General Internal Medicine 04/07/19 documented as of this encounter
--- OUTSIDE RECORDS SUMMARY | 2024-12-06 13:17 | XMS_ITS | Encounter Summary ---
Author Organization [facility] Address [address] [place] [address] Care Team Providers Care Private Watchman Name Role Phone You Valle MD Primary Care Provider [phone] Reason for Referral * Consultation (Routine) - Authorized Specialty Diagnoses / Procedures Referred By Contkennedy t Referred To Contact Thoracic Surgery Diagnoses Chronic obstructive pulmonary disease, unspecified COPD type (CMS/HCC) Greg Flores MD [address] [address] Phone: tel: fax: Lung Screening Program - [place] [address] [address] Phone: tel: fax: Referral ID Status Reason Start Date Expiration Date Visits Requested Visits Authorized [id number] Authorized Specialty Services Required 11/15/2024 11/15/2025 1 1 Reason for Visit * Reason Comments COPD F/u copd Encounter Details Date Type Department Care Team (Late st Contact Info) Description 11/15/2024 2:00 PM EST Office Visit Pulmonolgy - [place] [address] [phone] Greg Flores MD [address] [address] Chronic obstructive pulmonary disease, unspecified COPD type (CMS/HCC) (Primary Dx); Tobacco abuse Social History Tobacco Use Types Packs/Day Years [...] Sign Reading Time Taken Comments Blood Pressure 138/86 11/15/2024 2:12 PM EST Pulse 87 11/15/2024 2:12 PM EST Temperature 36.4 ??C (97.6 ??F) 11/15/2024 2:12 PM ES T Respiratory Rate 16 11/15/2024 2:12 PM EST Oxygen Saturation 99% 11/15/2024 2:12 PM EST Inhaled Oxygen Concentration - - Weight 70.8 kg (156 lb) 11/15/2024 2:12 PM EST Height 175.3 cm (5' 9 ) 11/15/2024 2:12 PM EST Body Mass Index 23.04 11/15/2024 2:12 PM EST documented in this encounter Progress Notes * Greg Flores MD - 11/15/2024 2:00 PM EST ADULT PULMONARY CONSULT CHIEF COMPLAINT or REASON FOR CONSULTATION: COPD (F/u copd) Murtaza Meyer is a 59 y.o. years old, male with a history of copd and tobacco use. History of Present Illness The patient is a 59-year-old male who presents for a follow-up of COPD. He has been utilizing albuterol and Anoro inhalers twice daily, which have provided some relief. His physical activity is limited due to shortness of breath, although he can ascend one flight of stairs. He quit smoking for about 3 to 4 months and then resumed. The pt had hernia surgery but no hospital stays for pulmonary reasons Supplemental Information He was recently hospitalized at [facility] for hernia surgery. SOCIAL HISTORY The patient quit smoking for about 3 to 4 months and then resumed. MEDICATIONS Current: Albuterol, Anoro ALLERGIES: Allergies Allergen Reactions Aspirin Wheezing [place] Wheezing ACTIVE MEDICATIONS: Outpatient Medications Marked as Taking for the 11/15/24 encounter (Office Visit) with Greg Flores MD Medication Sig Dispense Refill busPIRone (BUSPAR) 10 mg tablet Take 1 Tablet by mouth daily. ipratropium-albuteroL (Combivent Respimat) 20-100 mcg/actuation inhaler Inhale 1 Puff into the lungs 4 times daily as needed for Other. lisinopriL (PRINIVIL,ZESTRIL) 30 mg tablet TAKE 1 TABLET BY MOUTH DAILY 90 tablet 1 PROVIDER ATTESTS THAT THE MEDICATION LIST WAS OBTAINED, REVIEWED AND UPDATED. REVIEW OF SYSTEMS: GENERAL: No wt lost or fever ENT: +snoring Eye: RESPIRATORY: + cough, wheezing and dyspnea CARDIOVASCULAR: No chest pain, leg swelling or palpitations GI: No abdominal discomfort, MUSCULOSKELETAL: +backpain HEMATOLOGY/LYMPHOLOGY No prolonged bleeding, easy bruisability ENDOCRINE: no DM NEURO: No focal weakness : Psych: no depression PAST MEDICAL HISTORY: Patient Active Problem List Diagnosis Date Noted Hypercholesteremia 01/24/2024 Diverticulosis 05/08/2019 Benign essential hypertension 08/05/2018 BRBPR (bright red blood per rectum) 08/05/2018 Lesion of ulnar nerve 08/05/2018 MDD (major depressive disorder), recurrent episode, moderate (CMS/HCC) 08/05/2018 Nephrolithiasis 08/05/2018 Panic attacks 08/05/2018 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 Paraseptal emphysema (CMS/HCC) 08/05/2018 Polysubstance dependence (CMS/HCC) 08/05/2018 Prediabetes 08/05/2018 Pulmonary nodule 08/05/2018 Thyroid nodule 08/05/2018 Past Surgical History: Procedure Laterality Date SHOULDER SURGERY Left 2000 PROCEDURE: HISTORICAL SHOULDER SURGERY; COMMENT: Bone removed FAMILY HISTORY: Family History Problem Relation Name Age of Onset Other (Other: no info) Mother Prostate cancer Father Other (Other: Other) Father OCCUPATION OR OCCUPATION EXPOSURE: SOCIAL HISTORY Social History Socioeconomic History Marital status: Spouse name: Not on file Number of children: Not on file Years of education: Not on file Highest education level: Not on file Occupational History Not on file Tobacco Use Smoking status: Every Day Types: Cigars Smokeless tobacco: Former Tobacco comments: Smoking 3 cigars daily Substance and Sexual Activity Alcohol use: No Drug use: Yes Types: Marijuana/Cannabis Sexual activity: Not on file Comment: lives with Other Topics Concern Not on file Social History Narrative Not on file IMMUNIZATION: Immunization History Administered Date(s) Administered Influenza Quadravalent, MDCK, 0.5ml, preservative free (Flucelvax) 6mo and older 07/02/2021 Influenza Quadravalent, MDCK, 0.5ml, with preservative (Flucelvax) 6mo and older 05/21/2020 Influenza trivalent, 0.5mL, preservative free (Fluarix; FluLaval; Fluzone) ages 6mo and older (Afluria) 3 years and older 08/02/2008, 06/05/2009, 07/07/2011, 08/07/2013, 07/23/2014, 06/28/2015, 09/16/2016, 06/22/2018, 06/03/2020 Influenza, Unspecified 05/26/2019 MMR, measles mumps and rubella Live (Priorix; M-M-R II) 12mo and older 03/03/2000 Pneumococcal polysaccharide 23 valent (Pneumovax 23) 2yo and older 07/07/2011 Td Tetanus diptheria (Tdvax) 7yo and older 05/28/1997, 08/31/2006 Tdap Tetanus diptheria acellular pertussis (Boostrix; Adacel) 7yo and older 08/31/2006, 05/22/2009,07/02/2021 PHYSICAL EXAM: Visit Vitals BP 138/86 (BP Location: Left arm, Patient Position: Sitting, BP Cuff Size: Adult) Pulse 87 Temp 36.4 ??C (97.6 ??F) (Temporal) Resp 16 Ht 1.753 m (69 ) Wt 70.8 kg (156 lb) SpO2 99% BMI 23.04 kg/m?? Smoking Status Every Day BSA 1.86 m?? APPEARANCE: Alert and in no acute distress. Well nourished EYES: Conjunctiva and sclera normal. NOSE/SINUS: Nares normal. Septum midline. Mucosa No drainage or sinus tenderness. MOUTH/THROAT: no erythema or exudates. Mallampati class 2 NECK: Neck supple, thyroid symmetric and of normal size. HEART: RRR with normal S1 and S2, no murmurs, no gallops, no JVD appreciated. LUNG: CTA b/l, no wheezing or bronchial bs ABDOMEN: Bowel sounds normoactive, soft, non-tender EXTREMITIES: no clubbing, cyanosis, or edema. NEURO: Awake, alert and oriented x 3, no focalization. CARDIOPULMONARY TEST: September 15, 2023 Fev1= 72, DlCo= 62% Interpretation: Abnormal pulmonary function studies as evidenced primarily by a mix moderate obstructive ventilatory defect associated with a mild to moderate restrictive ventilatory defect. The diffusing capacity is moderately reduced and corrected alveolar ventilation. Clinical correlations are advised. RADIOLOGIST IMAGING: CT Lung Screening Low Dose - 05/10/23 - 1229 Report Status:Signed History: History of smoking. Cancer screening Comparison: 07/28/2021 Findings: Mediastinum: Normal sized heart and great vessels. No mediastinal lymphadenopathy. The central airways are clear. Lungs and Airways: No suspicious pulmonary nodule. Emphysematous changes. Abdomen: This study was performed without contrast and with lower than standard dose. These factorsreduce the sensitivity for detection of small lesions in the upper abdomen. Soft tissues and bones: Degenerative changes with no acute abnormality. Impression: No suspicious pulmonary nodule Lung Rads Category: 2- Benign - Continue annual screening with low-dose CT in 12 months ASSESSMENT: ICD-10-CM ICD-9-CM 1. Chronic obstructive pulmonary disease, unspecified COPD type ([facility]) J44.9 496 Ambulatory referral to Lung Screening Program 2. Tobacco abuse Z72.0 305.1 PLAN: Assessment & Plan 1. Chronic Obstructive Pulmonary Disease (COPD). He is currently using albuterol and Anoro inhalers. He reports that the Anoro inhaler helps a little bit. He is able to walk up one flight of stairs before experiencing shortness of breath. A low-dose CT scan for lung cancer screening will be ordered as he is overdue, with the last one performed inMay 2022. No changes to his current inhaler regimen are planned. Complete smoking cessation is the most important rx and it was d/w pt in detail Follow-up The patient will follow up in 1 year. - Follow up with You Valle MD for the other co-morbilities. - I spend 32 Minutes on this visit. The patient was educated about his problems, where assessment and plan was reviewed and explained, All questions were answered. RETURN TO THE NEXT VISIT: Based on physical exam, symptomatology, tests requested and baseline pulmonary evaluation/disease, I instructed the patient to come back to see me in 12 mths for reevaluation after the test has been done or earlier if the patient needed. Thanks You Valle MD for allowing me to have the opportunity to assist in the care of this patient. I have obtained verbal consent from Murtaza Meyer prior to the recording. I have advised Murtaza Meyer that he may refuse the recording and require the recording to be turned off at any time duringthis encounter. documented in this encounter Plan of Treatment Upcoming Encounters Date Type Department Care Team (Late st Contact Info) Description 12/26/2024 10:30 AM EDT Clinical Support Lung Screening Program - [place] 299 [facility] [address] [place] [address] 12/26/2024 11:00 AM EDT Appointment [facility] CT Scan [address] [place] [address] 06/08/2025 11:30 AM EDT Office Visit Vascular Surgery - [place] [address] [place] [address] Billy Mauricio MD [address] [place] [address] Scheduled Referrals Name Type Priority Associated Diagnoses Order Schedule Ambulatory referral to Lung Screening Program Outpatient Referral Routine Chronic obstructive pulmonary disease, unspecified COPD type (CMS/HCC) 1 Occurrences starting 11/15/2024 until 11/15/2025 documented as of this encounter Visit Diagnoses Diagnosis Chronic obstructive pulmonary disease, unspecified COPD type (CMS/HCC)- Primary Tobacco abuse Tobacco use disorder documented in this encounter Care Teams Private Watchman Relationship Specialty Start Date End Date You Valle MD [address] [place] [address] PCP - General Internal Medicine 04/07/19 documented as of this encounter
--- OUTSIDE RECORDS SUMMARY | 2024-12-06 13:17 | XMS_ITS | Encounter Summary ---
Author Organization [facility] Address [address] [place] [address] Care Team Providers Care Tire Curer Name Role Phone You Valle MD Primary Care Provider [phone] Reason for Visit * Reason Onset Date Comments medication problems 03/05/2021 Encounter Details Date Type Department Care Team Description 03/05/2021 Telephone Adult Medicine [facility] [address] [place] [phone] You Valle MD [address] [place] [phone] medication problems Social History Tobacco Use Types Packs/Day Years [...] have Coronavirus / COVID-19? No / Unsure 03/05/2021 11:03 AM EDT documented as of this encounter Miscellaneous Notes * Telephone Encounter - Erlin Lutz C.M.A. - 03/05/2021 2:05 PM EDT Called and spoke to Patricia who has spoke to pt and and she will fill script. * Telephone Encounter - Ping Calderon MD - 03/05/2021 1:43 PM EDT I think that is incorrect patient has already been taking Children's Motrin oral for the last 2 weeks without any symptoms Can they please confirm with the patient * Telephone Encounter - Nina Lozano - 03/05/2021 12:07 PM EDT Who is calling? A pharmacist: [facility]acy: [facility]ist Name: [facility] Name of the medication ibuprofen (ADVIL,MOTRIN) 100 MG/5ML suspension What is the specific problem or interaction? Pharmacist called requesting call back, Pharmacists stated patient is allerigic to aspirin and could be allergic to medication Pharmacist inquired if she should fill fill script , Please contact pharmacist If the patient is having a problem with taking the med - how long has the problem been going on? N/A documented in this encounter Plan of Treatment Not on file documented as of this encounter Visit Diagnoses Not on filedocumented in this encounter Care Teams Tire Curer Relationship Specialty Start Date End Date You Valle MD [address] [place] [address] PCP - General Internal Medicine 04/07/19 documented as of this encounter
--- OUTSIDE RECORDS SUMMARY | 2024-12-06 13:17 | XMS_ITS | Encounter Summary ---
Author Organization [facility] Address [address] [place] [address] Care Team Providers Care Hard Hat Diver Name Role Phone Sonali Calderon MD Primary Care Provider Unavail You Krishna MD Primary Care Provider [phone] Reason for Visit * Reason Onset Date Comments skin problems 07/19/2018 Encounter Details Date Type Department Care Team Description 07/19/2018 Telephone Adult Medicine [address] [address] Sonali Calderon MD skin problems Social History Tobacco Use Types Packs/Day Years Used Date Smoking Tobacco: Every Day Cigarettes 1.5 47 Smokeless Tobacco: Current Alcohol Use Standard Drinks/Week Comments No 0 (1 standard drink = 0.6 oz pur e alcohol) Sex Assigned at Date Recorded Not on file Job Start Date Occupation Industry Not on file Not on file Not on file documented as of this encounter Miscellaneous Notes * Telephone Encounter - Deidre Ham R.N. - 07/20/2018 11:16 AM EDT He is a new pt to us and we have no records, this is a Rx pt reports he has had in the past, I haveasked the pt to provide records and have scheduled him in [address] craig * Telephone Encounter - Sonali Calderon MD - 07/20/2018 11:15 AM EDT Has he had a prior prescription and just needs a refill ? * Telephone Encounter - Deidre Ham R.N. - 07/20/2018 9:48 AM EDT Pt saw dr Valle, I can see if he will prescribe , if not he will need to wait and see dr craig at firstvisit 08/09 to discuss meds * Telephone Encounter - Yuliet Aquino M.A. - 07/20/2018 9:44 AM EDT Pt has never seen Dr. Craig, pending 1st visit with Dr. Craig 08/09/18 Pt asking for rx for acne never prescribed here before Please triage * Telephone Encounter - Tiffanie Espinosa - 07/19/2018 3:22 PM EDT Caller requesting call back from provider: SONALI CRAIG Is the caller the patient? NO If caller is not the patient, what is the callers name? Jelani Woodward Callers relationship to patient? spouse If person calling is not the patient themselves, is there a verbal release in FYI or permanent comments for this person: YES Reason for call back: Patient is request a Differen Gel 0. 01% 45 grams to be precribed For his acne. Caller offered to speak with the nurse for assistance: YES Response: Patient offered to speak with nurse for assistance and patient agreed. Message forwarded to nurse. documented in this encounter Plan of Treatment Not on file documented as of this encounter Visit Diagnoses Not on filedocumented in this encounter Care Teams Hard Hat Diver Relationship Specialty Start Date End Date Sonali Calderon MD PCP - General Internal Medicine 06/28/18 04/06/19 You Valle MD [address] [place] [address] PCP - General Internal Medicine 04/07/19 documented as of this encounter
--- OUTSIDE RECORDS SUMMARY | 2024-12-06 13:17 | XMS_ITS | Encounter Summary ---
Author Organization [facility] Address [address] [place] [address] Care Team Providers Care Embalmer Assistant Name Role Phone You Valle MD Primary Care Provider [phone] Reason for Visit * Reason Onset Date Comments refill request 08/28/2019 Encounter Details Date Type Department Care Team Description 08/28/2019 Refill Adult Medicine [facility] [address] [place] [phone] You Valle MD [address] [place] [address] refill request Social History Tobacco Use Types Packs/Day Years [...] encounter Miscellaneous Notes * Telephone Encounter - Mary Jo Santos M.A. - 08/28/2019 4:42 PM EST Last ov 04/21/19 Next ov 08/31/19 * Telephone Encounter - Renae Sadie - 08/28/2019 10:35 AM EST Patient would like script to be: E-PRESCRIBED/FAXED TO PHARMACY WHEN WAS THE PATIENT'S LAST APPOINTMENT IN ADULT MEDICINE? 04/21/2019 WHEN WAS THE LAST TIME THE PATIENT SAW THEIR PCP? 07/07/2018 Does patient have an upcoming appointment? Yes 08/31/2019 (THE MEDICATION REQUESTED IS ON THE MED LIST ABOVE) All of the medications requested were on the CURRENT MEDS list Did you check the Pharmacy information above?: YES Patient wants: 30 -day supply Is this a mail order prescription request ? NO If the refill is from a FAXED refill request what is the RX # listed on the fax? N/A Patients current insurance carrier is: Payor: MEDICARE-PhoneGuard / Plan: MEDICARE-PhoneGuard / Product Type: MEDICARE [id number] documented in this encounter Plan of Treatment Not on file documented as of this encounter Visit Diagnoses Not on filedocumented in this encounter Care Teams Embalmer Assistant Relationship Specialty Start Date End Date You Valle MD [address] [place] [phone] PCP - General Internal Medicine 04/07/19 documented as of this encounter
--- OUTSIDE RECORDS SUMMARY | 2024-12-06 13:17 | XMS_ITS | Encounter Summary ---
Author Organization [facility] Address [address] [facility] [place] [address] Care Team Providers Care Food Taster Name Role Phone You Valle MD Primary Care Provider [phone] Reason for Visit * Reason Onset Date Comments refill request 03/12/2021 Encounter Details Date Type Department Care Team Description 03/12/2021 Refill Pulmonology - [place] 175 [facility] [address] [place] [address] Senthil Daniel MD 175 [facility] [address] [place] [address] refill request Social History Tobacco Use Types [...] encounter Miscellaneous Notes * Telephone Encounter - Olive Cervantes - 03/12/2021 4:35 PM EDT [place] 07/01/2020 Nov no appt booked documented in this encounter Plan of Treatment Not on file documented as of this encounter Visit Diagnoses Diagnosis Paraseptal emphysema (HCC) Other emphysema Pulmonary nodule Solitary pulmonary nodule History of Polysubstance dependence (HCC) Combinations of drug dependence excluding opioid type drug, unspecified Nicotine dependence, uncomplicated, unspecified nicotine product type documented in this encounter Care Teams Food Taster Relationship Specialty Start Date End Date You Valle MD [address] [place] [address] PCP - General Internal Medicine 04/07/19 documented as of this encounter
--- OUTSIDE RECORDS SUMMARY | 2024-12-06 13:17 | XMS_ITS | Encounter Summary ---
Author Organization [facility] Address [address] [place] [address] Care Team Providers Care Flare Worker Name Role Phone You Valle MD Primary Care Provider [phone] Reason for Visit * Reason Onset Date Comments Error 05/21/2023 Encounter Details Date Type Department Care Team Description 05/21/2023 Refill Pulmonology - [place] 175 [facility] [address] [place] [phone] Greg Flores MD [address] [place] [phone] Error Social History Tobacco Use Types Packs/Day Years [...] Recorded In the last 10 days, have jean u been in contact with someone who was confirmed or suspected to have Coronavirus/COVID-19? No / Unsure 05/12/2023 1:58 PM EDT documented as of this encounter Plan of Treatment Not on file documented as of this encounter Visit Diagnoses Diagnosis Chronic obstructive pulmonary disease, unspecified COPD type (HCC) documented in this encounter Care Teams Flare Worker Relationship Specialty Start Date End Date You Valle MD [address] [place] [phone] PCP - General Internal Medicine 04/07/19 documented as of this encounter
--- OUTSIDE RECORDS SUMMARY | 2024-12-06 13:17 | XMS_ITS | Encounter Summary ---
Author Organization [facility] Address [address] [facility] [place] [address] Care Team Providers Care Land Commissioner Name Role Phone You Valle MD Primary Care Provider Reason for Visit * Reason Comments E-prescribe Rx Request Encounter Details Date Type Department Care Team Description 09/15/2023 Refill Pulmonology - [place] 175 [facility] [address] [place] [address] Greg Flores MD [address] [place] [phone] E-prescribe Rx Request Social History Tobacco Use Types Packs/Day Years [...] encounter Miscellaneous Notes * Telephone Encounter - Kody Adams - 09/15/2023 2:26 PM EST NOV 10/25/23 [place] 05/12/23 Refill request , need new RX for ALBUTEROL SULFATE (Ventolin HFA) 108 (90 Base) MCG/ACT Aero Soln?? documented in this encounter Plan of Treatment Not on file documented as of this encounter Visit Diagnoses Diagnosis Chronic obstructive pulmonary disease, unspecified COPD type (HCC) documented in this encounter Care Teams Land Commissioner Relationship Specialty Start Date End Date You Valle MD [address] [place] [address] PCP - General Internal Medicine 04/07/19 documented as of this encounter
--- OUTSIDE RECORDS SUMMARY | 2024-12-06 13:17 | XMS_ITS | Encounter Summary ---
Author Organization [facility] Address [address] [facility] [place] [address] Care Team Providers Care Creative Art Therapist Name Role Phone You Valle MD Primary Care Provider [phone] Encounter Details Date Type Department Care Team Description 08/06/2021 Import Coordination And Production Head Report Medical Records [address] [place] [address] Dylan Keys MD Social History Tobacco Use Types Packs/Day Years [...] on filedocumented in this encounter Care Teams Creative Art Therapist Relationship Specialty Start Date End Date You Valle MD [address] [place], [place] [phone] PCP - General Internal Medicine 04/07/19 documented as of this encounter
--- OUTSIDE RECORDS SUMMARY | 2024-12-06 13:17 | XMS_ITS | Encounter Summary ---
Author Organization [facility] Address [address] [facility] [place] [address] Care Team Providers Care Grip Boss Name Role Phone You Valle MD Primary Care Provider [phone] Encounter Details Date Type Department Care Team Description 09/11/2019 Telephone Pulmonology - [place] 175 [facility] [address] [place] [address] Senthil Daniel MD 175 [facility] [address] [place] [address] Social History Tobacco Use Types Packs/Day Years [...] encounter Miscellaneous Notes * Telephone Encounter - Elina Goodman - 09/14/2019 9:44 AM EST Called and left a message for pharmacy to call back. * Telephone Encounter - Rita Apple - 09/11/2019 4:56 PM EST [facility] would like a call back regarding respiratory systems and testing. Please call at the number above. documented in this encounter Plan of Treatment Not on file documented as of this encounter Visit Diagnoses Not on filedocumented in this encounter Care Teams Grip Boss Relationship Specialty Start Date End Date You Valle MD [address] [place] [phone] PCP - General Internal Medicine 04/07/19 documented as of this encounter
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
--- OUTSIDE RECORDS SUMMARY | 2024-12-06 13:18 | XMS_ITS | Encounter Summary ---
Author Organization [facility] Address [address] [place] [address] Care Team Providers Care Duty Engineer Name Role Phone You Valle MD Primary Care Provider [phone] Encounter Details Date Type Department Care Team Description 05/17/2020 Nurse Healthcare Manager Report Medical Records [address] [place] [address] Dylan Keys MD Social History Tobacco Use [...] on filedocumented in this encounter Care Teams Duty Engineer Relationship Specialty Start Date End Date You Valle MD [address] [place] [address] [phone] PCP - General Internal Medicine 04/07/19 documented as of this encounter
--- OUTSIDE RECORDS SUMMARY | 2024-12-06 13:18 | XMS_ITS | Encounter Summary ---
Author Organization [facility] Address [address] [place] [address] Care Team Providers Care International Representative Name Role Phone You Valle MD Primary Care Provider [phone] Reason for Visit * Reason Comments E-prescribe Rx Request Encounter Details Date Type Department Care Team Description 08/11/2024 Refill Adult Medicine [address] [address] Mehul Reynolds, INDUSTRIAL SOCIOLOGIST [address] [place], [place] [phone] E-prescribe Rx Request Social History Tobacco Use Types Packs/Day Years Used Date Smoking Tobacco: Former Cigars Smokeless Tobacco: Former Comments:Quit smoking in 2023 Alcohol Use Standard Drinks/Week Comments No 0 (1 standard drink = 0.6 oz pur e alcohol) Sex Assigned at Date Recorded Not on file Job Start Date Occupation Industry Not on file Not on file Not on file documented as of this encounter Plan of Treatment Not on file documented as of this encounter Visit Diagnoses Diagnosis Hypercholesteremia Pure hypercholesterolemia Uncontrolled hypertension Unspecified essential hypertension Right inguinal pain Abdominal pain, right lower quadrant documented in this encounter Care Teams International Representative Relationship Specialty Start Date End Date You Valle MD [address] [place] [address] [phone] PCP - General Internal Medicine 04/07/19 documented as of this encounter
--- OUTSIDE RECORDS SUMMARY | 2024-12-06 13:18 | XMS_ITS | Encounter Summary ---
Author Organization [facility] Address [address] [facility] [place] [address] Care Team Providers Care It Risk Advisor Name Role Phone You Valle MD Primary Care Provider [phone] Reason for Visit * Reason Onset Date Comments Faxed Refill 02/26/2020 Encounter Details Date Type Department Care Team Description 02/26/2020 Refill Pulmonology - [place] [address] [facility] [address] [place] [phone] Senthil Daniel MD [address] [facility] [address] [place] [address] Faxed Refill Social History Tobacco Use Types Packs/Day Years [...] * Telephone Encounter - Elina Goodman - 02/26/2020 11:19 AM EDT Mor[place]- 12/20/19 Next- 07/01/20 * Telephone Encounter - Yani Lopez - 02/26/2020 10:28 AM EDT Patient would like script to be: E-PRESCRIBED/FAXED TO PHARMACY ?? WHEN WAS THE PATIENT'S LAST APPOINTMENT IN ADULT MEDICINE? 12/20/19 ?? WHEN WAS THE LAST TIME THE PATIENT SAW THEIR PCP? Same as above ?? Does patient have an upcoming appointment? 07/01/20 ?? (THE MEDICATION REQUESTED IS ON THE MED LIST ABOVE) All of the medications requested were on the CURRENT MEDS list ?? Did you check the Pharmacy information above?: YES ?? Patient wants: 30 -day supply ?? Is this a mail order prescription request ? NO ?? If the refill is from a FAXED refill request what is the RX # listed on the fax? N/A ?? Patients current insurance carrier is: [place] / Product Type: MEDICARE [id number] ? documented in this encounter Plan of Treatment Not on file documented as of this encounter Visit Diagnoses Not on filedocumented in this encounter Care Teams It Risk Advisor Relationship Specialty Start Date End Date You Valle MD [address] [place] [phone] PCP - General Internal Medicine 04/07/19 documented as of this encounter
== END 2024-12-06 11:20 | disposition home or self-care (01) ==
LOC: HO.HGS 11:01
PROVIDERS: PCP Internal Medicine; Visit Provider Surgery
DX: K40.90 Unilateral inguinal hernia, without obstruction or gangrene, not specified as recurrent (principal)
CPT/HCPCS: 99024

== ENCOUNTER → 2024-12-06 11:01 | Outpatient (BNVA) | payer MEDICARE, MEDICAID, SELFPAY | PROVIDERS: PCP Internal Medicine; Visit Provider Surgery | DX: Z09 Encounter for follow-up examination after completed treatment for conditions other than malignant neoplasm (principal); Z98.890 Other specified postprocedural states; Z87.19 Personal history of other diseases of the digestive system | CPT/HCPCS: 99212 ==